=== PATIENT | male | born 1990 ===

== ENCOUNTER 2024-02-02 06:15 | Outpatient (RCR) | payer OTHER, SELFPAY | END 2024-02-02 10:22 | disposition home or self-care (01) | LOC: RPT 06:15 | PROVIDERS: ATTENDING PHYSICIAN Nurse Practitioner | DX: Z47.89 Encounter for other orthopedic aftercare (principal); Z73.6 Limitation of activities due to disability; M25.572 Pain in left ankle and joints of left foot; R20.0 Anesthesia of skin | CPT/HCPCS: 97110; 97161 ==